=== PATIENT | female | born 1965 ===

== ENCOUNTER 2018-07-24 15:49 | Emergency (ER) | payer OTHER ==
[2018-07-24 16:11] VITALS: BP 136/85; PULSE 94; RESP 18; TEMP 98.1; O2SAT 96
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
== END 2018-07-24 16:40 | disposition home or self-care (01) ==
LOC: C.ER 15:49
DX: S50.12XA Contusion of left forearm, initial encounter (principal); S50.11XA Contusion of right forearm, initial encounter; V49.40XA Driver injured in collision with unspecified motor vehicles in traffic accident, initial encounter